=== PATIENT | female | born 1990 | race Caucasian/White ===

== ENCOUNTER 2021-10-03 13:53 | Emergency (ER) | payer MEDICAID ==
[~2021-10-03] VITALS: Ht 149.9 cm; Wt 45.4 kg
[2021-10-03] MEDS ORDERED: KETOROLAC TROMETHAMINE 15 MG INJ IVP ONE (14:30)
[2021-10-03] MEDS ORDERED: ONDANSETRON 4 MG/2 ML VIAL IV ONE (14:30)
[2021-10-03] MEDS ORDERED: IV NORMAL SALINE 250 ML BAG IV ONE (14:30)
[2021-10-03] MEDS ORDERED: KETOROLAC TROMETHAMINE 15 MG INJ ONE (14:49)
[2021-10-03] MEDS ORDERED: ONDANSETRON 4 MG/2 ML VIAL ONE (14:49)
[2021-10-03 14:55] LABS: HEMATOCRIT 38.1 % (31.2-41.9); MEAN CORPUSCULAR HEMOGLOBIN 28.2 uug (24.7-32.8); MEAN CORPUSCULAR VOLUME 83.9 fL (75.5-95.3); PLATELET COUNT (AUTO) 251 K/uL (179-408)
--- NOTE | 2021-10-03 14:56 | NUR ---
Patient c/o headache, night sweats and loss of appetite. IV placed, meds given as ordered. Covid swab sent to lab
[2021-10-03 15:30] LABS: BILIRUBIN,TOTAL 0.9 mg/dL (0.2-1.0); CREATININE 0.8 mg/dL (0.6-1.3); POTASSIUM 3.6 mmol/L (3.5-5.1); TOTAL PROTEIN, SERUM 7.3 g/dL (6.4-8.2)
--- NOTE | 2021-10-03 15:51 | NUR ---
Patient states headache and nausea have diminished
[2021-10-03 16:10] LABS: *MONOTEST NEGATIVE (NEGATIVE)
--- NOTE | 2021-10-03 16:18 | NUR ---
Urine sent to lab
[2021-10-03 16:58] LABS: *BILIRUBIN,URIN NEGATIVE (NEGATIVE); *BLOOD, URINE 2+ (NEGATIVE); *CLARITY,URINE CLOUDY (CLEAR); *COLOR,URINE YELLOW (YELLOW); *KETONES,URINE 1+ (NEGATIVE); LEUKOCYTE ESTERASE ,URINE 2+ (NEGATIVE); NITRITE, URINE POSITIVE (NEGATIVE); PH,URINE 5.5 (5.0-8.0); UGLUCOSE NEGATIVE (NEGATIVE)
[2021-10-03] MEDS ORDERED: CEFTRIAXONE 1 G in IV DEXTROSE 5% 50 ML IV ONE (17:30)
[2021-10-03] MEDS ORDERED: IV NORMAL SALINE 100 ML BAG IV ONE (17:30)
[2021-10-03] MEDS ORDERED: CEFTRIAXONE /D5W 50ML IVPB **ER PYXIS IV ONE (17:34)
[2021-10-03] MEDS ORDERED: ACETAMINOPHEN ES 500 MG TABLET ONE (17:39)
[2021-10-03] MEDS ORDERED: ACETAMINOPHEN ES 500 MG TABLET PO ONE (17:45)
--- NOTE | 2021-10-03 17:45 | NUR ---
PATIENT STATES SHE HAS BACK PAIN AND HEAD PAIN AGAIN. MD NOTIFIED. TYLENOL GIVEN ORDERED
[2021-10-03 18:25] LABS: BACTERIA,URINE MANY /HPF (NONE SEEN); MUCUS,URINE FEW /LPF (0-FEW); SQUAMOUS EPITHELIAL CELL,UR MODERATE /HPF (NONE SEEN); WBC,URINE 50-80 /HPF (0-3)
--- NOTE | 2021-10-03 18:44 | NUR ---
Second IV bag of NS completed at 1840
[2021-10-03] MEDS ORDERED: NITR100C11 PO (18:52)
[2021-10-03] MEDS ORDERED: DOXY-326 PO (18:52)
--- NOTE | 2021-10-03 18:55 | NUR ---
IV removed. Catheter intact and site benign. Pressure and 4x4 gauze applied to site. No bleeding noted.
[2021-10-03 19:00] VITALS: BP 101/55
--- NOTE | 2021-10-03 19:00 | NUR ---
Patient discharged to home in stable condition. Written and verbal after care instructions given. Patient verbalizes understanding of instructions. Stressed follow up or return to ER for worsening s/s.
[2021-10-07 00:06] LABS: *GC NAA Negative (Negative)
== END 2021-10-03 19:01 | disposition home or self-care (01) ==
LOC: ER 14:00
DX: N30.90 Cystitis, unspecified without hematuria (principal); Z20.822 Contact with and (suspected) exposure to COVID-19; Z97.5 Presence of (intrauterine) contraceptive device
CPT/HCPCS: 36415; 76856; 80053; 81001; 85025; 86140; 86308; 87077; 87086; 87186; 87426; 87491; 87806; 96361; 96365; 96375; 99285; J0696; J1885; J2405; A4663; A9150; J3490; J7050; J7060